=== PATIENT | male | born 1980 | race Caucasian/White ===

== ENCOUNTER 2023-07-04 10:52 | Day surgery (SDC) | payer BC ==
[2023-07-04] MEDS: LACTATED RINGERS 1,000 ML IV SCH (11:15)
[2023-07-04 11:26] LABS: Glucose,Whole Blood 162 mg/dL (70-110)
[2023-07-04 11:39] VITALS: TEMP 97.4
[2023-07-04] MEDS ORDERED: LIDOCAINE 1% INJ 10MG/ML (20 ML MDV) ONE (12:13)
[2023-07-04] MEDS ORDERED: PROPOFOL 10 MG/ML 20 ML VIAL IV ONE (12:13)
--- NOTE | 2023-07-04 12:27 | P.PCN ---
Date of Procedure: 07/04/23 Procedure(s) Performed: BRIEF HISTORY: Patient is a 43-year-old, pleasant, White female scheduled for an upper endoscopy as a part of evaluation of intermittent dysphagia to solids for the last 7 years duration. He has these episodes once or twice Per your and often with meat and bread.. PROCEDURE PERFORMED: Esophagogastroduodenoscopy With biopsy and dilation. PREOPERATIVE DIAGNOSIS: Intermittent dysphagia to solids. IV sedation per anesthesia. PROCEDURE: After informed consent was obtained, the patient was brought into the endoscopy unit. IV sedation was administered by Anesthesia under continuous monitoring. Initially the Olympus GIF-140 video endoscope was inserted into the mouth. Esophagus intubated without any difficulty. It was gradually advanced into the stomach and duodenum and carefully examined. The bulb and the second part of the duodenum appeared normal. The scope at this time was withdrawn to the stomach, adequately insufflated with air, and upon careful examination, mucosa of the antrum, body, cardia and the fundus appeared normal. The scope was then withdrawn into the esophagus.Small hiatal hernia noted. The GE junction was located at 39 cm from the incisors.Was a distal esophageal stricture identified that was dilated using 18 mm TTS balloon for 30 seconds. The Mucosa in the mid and distal esophagus had thickened esophageal folds with superficial mucosal rings suspicious for years of esophagitis and multiple biopsies were done from this area. There were Few erosions seen in the distal esophagus and the patient tolerated the procedure well. IMPRESSION: 1. Distal esophageal stricture status post balloon dilation using 18 mm TTS balloon. 2. Small hiatal hernia. 3. Superficial erosions in the distal esophagus with thickened distal esophageal folds suspicious for years of age esophagitis status post multiple biopsies RECOMMENDATIONS: The findings of this examination were discussed with the patient As well as his family. He was advised to follow with the biopsy results. Start omeprazole 20 mg daily.He'll remain on clear liquids for 2 hours. Follow Operative in the office in 2 weeks.
[2023-07-04 13:07] VITALS: RESP 16
[2023-07-04 13:52] VITALS: BP 122/73; PULSE 75
== END 2023-07-04 13:00 | disposition home or self-care (01) ==
LOC: ORWHC2ENDO 10:52
PROVIDERS: ATTEND Internal Medicine Gastroenterology
DX: K29.50 Unspecified chronic gastritis without bleeding (principal); K44.9 Diaphragmatic hernia without obstruction or gangrene; K22.2 Esophageal obstruction; K20.90 Esophagitis, unspecified without bleeding; J45.909 Unspecified asthma, uncomplicated; G47.33 Obstructive sleep apnea (adult) (pediatric); F90.9 Attention-deficit hyperactivity disorder, unspecified type; E66.01 Morbid (severe) obesity due to excess calories; F17.210 Nicotine dependence, cigarettes, uncomplicated; Z79.899 Other long term (current) drug therapy; Z79.51 Long term (current) use of inhaled steroids; Z68.41 Body mass index [BMI] 40.0-44.9, adult
CPT/HCPCS: 88305; 43239; 43249; J2001; J2704; C1726